=== PATIENT | female | born 1935 | race Caucasian/White ===

== ENCOUNTER 2017-11-04 17:11 | Inpatient (IN) ==
[2017-11-04] MEDS ORDERED: Sodium Chlor 0.9% Inj 500 ML IV.SIG ONE (17:27)
--- NOTE | 2017-11-04 17:33 | ED ---
HPI General Chief complaint: Nausea/Vomiting/Diarrhea Stated complaint: N/V/D x 1 wk/ No urine since 10pm/no appetite Time Seen by Provider: 11/04/17 17:27 Source: patient Mode of arrival: ambulatory Limitations: no limitations History of Present Illness HPI Narrative: 82-year-old female patient presents to the ER today because she has had 1 week history of nausea, vomiting, diarrhea, and left lower quadrant abdominal pain which she currently measures at a 5 out of 10. She has not had any fevers, but states that she has had decreasing urination over last few days , has not been eating anything for several days, tries to drink fluids, and had talked to urgent care facility and they were told to come to the ER for further evaluation. She denies any fevers, black stools, or other symptoms. She denies bad food exposure, does not know any sick contacts. Related Data Home Medications Medication Instructions Recorded Confirmed amlodipine 5 mg PO DAILY 11/04/17 11/04/17 anagrelide 0.5 mg PO Q12H 11/04/17 11/04/17 cholecalciferol (vitamin D3) 2,000 unit PO DAILY 11/04/17 11/04/17 [Vitamin D3] levothyroxine 50 mcg PO DAILY 11/04/17 11/04/17 losartan 100 mg PO DAILY 11/04/17 11/04/17 metoprolol tartrate 50 mg PO BID 11/04/17 11/04/17 omeprazole 20 mg PO DAILY 11/04/17 11/04/17 pravastatin 40 mg PO DAILY 11/04/17 11/04/17 sodium bicarbonate 650 mg PO DAILY 11/04/17 11/04/17 Allergies Allergy/AdvReac Type Severity Reaction Status Date / Time No Known Allergies Allergy Unknown NONE Uncoded 11/04/17 17:13 Review of Systems Except as stated in HPI: all other systems reviewed are negative [facility] Social History Social History Substance History: No History of Abuse Second Hand Smoke Exposure: No Smoking Status: Never smoker How Often Do You Have a Drink Containing Alcohol: Never Recent Travel in [facility] within the Last 8 Weeks: No Recent Out of Country Travel within the Last 8 Weeks: No Immunization History Tetanus Immunization: Unsure Hx Influenza Vaccine This Season: Yes Exam Narrative Exam Narrative: GENERAL: Well-developed elderly female patient currently and mild distress. Awake and oriented 3. SKIN: Focused skin assessment warm/dry. HEAD: Atraumatic. Normocephalic. EYES: Pupils equal and round. No scleral icterus. No injection or drainage. ENT: No nasal bleeding or discharge. Mucous membranes pink and moist. NECK: Trachea midline. No JVD. CARDIOVASCULAR: Regular rate and rhythm. No murmur appreciated. RESPIRATORY: No accessory muscle use. Clear to auscultation. Breath sounds equal bilaterally. GASTROINTESTINAL: Abdomen soft, mild left lower quadrant tenderness without guarding or rebound, nondistended. Hepatic and splenic margins not palpable. MUSCULOSKELETAL: No obvious deformities. No clubbing. No cyanosis. No edema. NEUROLOGICAL: Awake and alert. No obvious cranial nerve deficits. Motor grossly within normal limits. Normal speech. PSYCHIATRIC: Appropriate mood and affect; insight and judgment normal. Course Hospital Course: Lab work shows mild hyponatremia, her creatinine has increased from 1.5-5 today chest from 4 days ago, and BUN is increased as well, there is concern of dehydration here. IV fluids were given in the ER. At this point, my plan would be to admit the patient for further treatment. Case was discussed with Dr. Norris Mar for admission. Initial Documented Vital Signs Temperature 97.7 F 11/04/17 17:13 Pulse Rate 77 11/04/17 17:13 Respiratory Rate 16 11/04/17 17:13 Blood Pressure 154/70 H 11/04/17 17:13 Pulse Oximetry 97 11/04/17 17:13 Last Documented Vital Signs Temperature 97.7 F 11/04/17 17:13 Pulse Rate 77 11/04/17 17:13 Respiratory Rate 16 11/04/17 17:13 Blood Pressure 154/70 H 11/04/17 17:13 Pulse Oximetry 97 11/04/17 17:13 Medical Decision Making Differential Diagnosis Differential Diagnosis: Gastroenteritis versus diverticulitis versus colitis versus acute intra-abdominal processes versus dehydration versus electrolyte abnormalities Lab Data Result diagrams: 11/04/17 17:39 11/04/17 17:39 Lab Results 11/04/17 11/04/17 Range/Units 17:39 17:39 CBC w Diff Slide review pending WBC 11.6 H (4.0-11.0) th/mm3 RBC 3.01 L (4.00-5.30) mil/mm3 Hgb 9.6 L (11.6-15.3) gm/dL Hct 26.9 L (35.0-46.0) % MCV 89.4 (80.0-100.0) fL MCH 32.0 (27.0-34.0) pg MCHC 35.8 (32.0-36.0) % RDW 17.9 H (11.6-17.2) % Plt Count 334 (150-450) th/mm3 MPV 9.1 (7.0-11.0) fL Neut % (Auto) 72.1 H (16.0-70.0) % Lymph % (Auto) 14.2 (9.0-44.0) % Mcleod % (Auto) 11.1 H (0.0-8.0) % Eos % (Auto) 0.9 (0.0-4.0) % Baso % (Auto) 1.7 (0.0-2.0) % Neut # (Auto) 8.3 H (1.8-7.7) th/mm3 Lymph # (Auto) 1.7 (1.0-4.8) th/mm3 Mcleod # (Auto) 1.3 H (0.0-0.9) th/mm3 Eos # (Auto) 0.1 (0.0-0.4) th/mm3 Baso # (Auto) 0.2 (0.0-0.2) th/mm3 WBC Differential . Diff Scan Auto diff confirmed Differential Comment . Platelet Estimate Normal (Normal) Platelet Morphology Normal (Normal) Ovalocytes 1+ H (None) Hematology Comments Sodium 130 L (136-145) meq/L Potassium 3.3 L (3.5-5.1) meq/L Chloride 101 (98-107) meq/L Carbon Dioxide 18.0 L (21.0-32.0) meq/L Anion Gap 11 (5-15) meq/L BUN 43 H (7-18) mg/dL Creatinine 5.10 H (0.50-1.00) mg/dL Estimated GFR 8 L (>89) mL/min Random Glucose 99 (74-106) mg/dL Calcium 8.5 (8.5-10.1) mg/dL Total Bilirubin 0.4 (0.2-1.0) mg/dL AST 23 (15-37) U/L ALT 17 (10-53) U/L Alkaline Phosphatase 106 (45-117) U/L Total Protein 7.4 (6.4-8.2) g/dL Albumin 3.7 (3.4-5.0) g/dL Lipase 117 (73-393) U/L Discharge Plan Discharge Disposition Patient Disposition: 30 Still Patient Discharge Condition Condition: Stable Discharge Details Anticipated Discharge Date: 11/04/17 Diagnosis: Dehydration, TRINITY (acute kidney injury), Acute hyponatremia Physicians Team ED Provider: Mark Hopkins Primary Care Provider: Laurie Treviño Rxs /Orders / Referrals /Forms Prescriptions: No Action anagrelide 0.5 mg Capsule 0.5 mg PO Q12H RF: 0 pravastatin 40 mg Tablet 40 mg PO DAILY RF: 0 amlodipine 5 mg Tablet 5 mg PO DAILY RF: 0 sodium bicarbonate 650 mg Tablet 650 mg PO DAILY RF: 0 levothyroxine 50 mcg Tablet 50 mcg PO DAILY RF: 0 metoprolol tartrate 50 mg Tablet 50 mg PO BID RF: 0 omeprazole 20 mg Capsule,Delayed Release(Dr/Ec) 20 mg PO DAILY RF: 0 losartan 100 mg Tablet 100 mg PO DAILY RF: 0 cholecalciferol (vitamin D3) [Vitamin D3] 2,000 unit Capsule 2,000 unit PO DAILY RF: 0 Status ED Status: With Doctor
[2017-11-04 17:53] LABS: Chloride 101 meq/L (98-107); Potassium 3.3 meq/L (3.5-5.1); Sodium 130 meq/L (136-145)
[2017-11-04 17:56] LABS: Calcium 8.5 mg/dL (8.5-10.1)
[2017-11-04 17:57] LABS: Albumin 3.7 g/dL (3.4-5.0); Anion Gap 11 meq/L (5-15); Blood Urea Nitrogen 43 mg/dL (7-18); Glucose,Random 99 mg/dL (74-106); Lipase 117 U/L (73-393)
[2017-11-04 18:00] LABS: Alanine Aminotransferase 17 U/L (10-53); Aspartate Aminotransferase 23 U/L (15-37); Glomerular Filtration Rate 8 mL/min (>89)
[2017-11-04 18:01] LABS: Total Protein 7.4 g/dL (6.4-8.2)
[2017-11-04 18:03] LABS: Alkaline Phosphatase 106 U/L (45-117)
[2017-11-04 18:13] LABS: Baso # (Auto) 0.2 th/mm3 (0.0-0.2); Baso % (Auto) 1.7 % (0.0-2.0); Eos # (Auto) 0.1 th/mm3 (0.0-0.4); Eos % (Auto) 0.9 % (0.0-4.0); Hematocrit 26.9 % (35.0-46.0); Hemoglobin 9.6 gm/dL (11.6-15.3); Lymph # (Auto) 1.7 th/mm3 (1.0-4.8); Lymph % (Auto) 14.2 % (9.0-44.0); Mean Corpuscular HGB Conc 35.8 % (32.0-36.0); Mean Corpuscular Volume 89.4 fL (80.0-100.0); Mean Platelet Volume 9.1 fL (7.0-11.0); Mono # (Auto) 1.3 th/mm3 (0.0-0.9); Mono % (Auto) 11.1 % (0.0-8.0); Neut # (Auto) 8.3 th/mm3 (1.8-7.7); Neut % (Auto) 72.1 % (16.0-70.0); Red Blood Count 3.01 mil/mm3 (4.00-5.30); Red Cell Distribution Width 17.9 % (11.6-17.2); White Blood Count 11.6 th/mm3 (4.0-11.0)
[2017-11-04 18:16] LABS: Platelet Count 334 th/mm3 (150-450)
[2017-11-04 18:32] LABS: Ovalocytes 1+; Platelet Estimate Normal (Normal); Platelet Morphology Normal (Normal)
[2017-11-04] MEDS ORDERED: AGRYLIN PO SCH (21:30)
[2017-11-04] MEDS: Sod Chloride 0.9% Inj 1,000 ML IV.CONT SCH (22:16)
[2017-11-04] MEDS: Metoprolol Tartrate 50 MG Tablet PO SCH (22:16)
--- NOTE | 2017-11-04 22:24 | P.HP ---
History of Present Illness Service: medicine Primary Care Physician: Laurie Treviño MD History of Present Illness: Patient presented to the ER after 4 day history of diarrhea and no urination for the past 24 hours. She states she has been feeling poorly starting mon when she went to see Dr May for her myelodysplastic syndrome and had her injection of procrit. That evening she felt chills then developed diarrhea for the next 4 days going 6-9 times a day. She kept taking in fluids but was unable to eat much. She also had LLQ pain. She denies blood in her stools. She presented to the ER this evening and was found to have a creatinine of 5. She normally sees Dr De La Cruz for her CKD3. Her last BUn in august was 18 and her creatinine was 1.18. She normally takes sodium bicarbonate and she has been taking all her medications during her illness. She denies use of any new medications.She states she had epsiodes of nausea and vomiting that had subsided by monday. - Diagnosis (1) TRINITY (acute kidney injury) (2) Dehydration (3) Acute hyponatremia Inpatient Certification: I certify that the inpatient services were ordered in accordance with Medicare regulations governing the order. This includes certification that hospital inpatient services are reasonable and necessary and in the case of services not specified as inpatient-only under 42 CFR 419.22(n), that they are appropriately provided as inpatient services in accordance to with the 2-midnight benchmark under 43 CFR 412.3(e) Estimated Total Length of Stay (Days): 2 Plans for Post Hospital Care: Not yet determined Review of Systems All other systems reviewed negative except as stated in [facility] - History History Provided By: Patient - Medical History Medical History: Medical History (Last Reviewed 11/08/17 @ 12:33 by Mayito Glass) CKD (chronic kidney disease) stage 3, GFR 30-59 ml/min Hyperlipidemia Hypertension Hypothyroidism Myelodysplasia (myelodysplastic syndrome) - Surgical History Surgical History: Surgical History (Last Reviewed 11/08/17 @ 12:33 by Mayito Glass) H/O ovarian cystectomy History of appendectomy - Tobacco History Second Hand Smoke Exposure: No Tobacco Use In Past 30 Days: No Smoking Status: Never smoker - Alcohol History How Often Do You Have a Drink Containing Alcohol: Never - Substance Use History Substance History: No History of Abuse - Travel History Recent Travel in the [place] Within the Last 8 Weeks: No Recent Travel Out of the Country Within the Last 8 Weeks: No - Immunization History Tetanus Immunization: Unsure Hx Influenza Vaccine This Season: Yes Medications and Allergies Active Medications: Active Medications Amlodipine Besylate (Norvasc) 5 mg PO DAILY MARIA E Sodium Chloride (Ns Inj) 1,000 mls @ 80 mls/hr IV.CONT .[id number] [facility] Levothyroxine Sodium (Synthroid) 50 mcg PO DAILY@0700 MARIA E Losartan Potassium (Cozaar) 100 mg PO DAILY MARIA E Metoprolol Tartrate (Lopressor) 50 mg PO BID MARIA E Ondansetron HCl (Zofran Inj) 4 mg IV.PUSH Q6H PRN PRN Reason: NAUSEA OR VOMITING Pt Own Agrylin 0.5 (Mg) 0 each PO Q12H MARIA E Pravastatin Sodium (Pravachol) 40 mg PO DAILY MARIA E Sodium Bicarbonate (Sodium Bicarbonate) 650 mg PO DAILY [facility] Sodium Chloride (Ns Flush) 2 ml IV.FLUSH PRN PRN PRN Reason: FLUSH AFTER USING IV ACCESS Vitamin D (Vitamin D3) 2,000 unit PO DAILY [facility] Allergies Allergy/AdvReac Type Severity Reaction Status Date / Time No Known Allergies Allergy Unknown NONE Uncoded 11/04/17 17:13 Home Medications Medication Instructions Recorded Confirmed Type amlodipine 5 mg PO DAILY 11/04/17 11/04/17 History anagrelide 0.5 mg PO Q12H 11/04/17 11/04/17 History cholecalciferol (vitamin D3) 2,000 unit PO DAILY 11/04/17 11/04/17 History [Vitamin D3] levothyroxine 50 mcg PO DAILY 11/04/17 11/04/17 History losartan 100 mg PO DAILY 11/04/17 11/04/17 History metoprolol tartrate 50 mg PO BID 11/04/17 11/04/17 History omeprazole 20 mg PO DAILY 11/04/17 11/04/17 History pravastatin 40 mg PO DAILY 11/04/17 11/04/17 History sodium bicarbonate 650 mg PO DAILY 11/04/17 11/04/17 History Exam Vital signs: Vital Signs 11/04/17 17:13 11/04/17 19:23 11/04/17 19:29 Temperature 97.7 F Pulse Rate 77 83 76 Respiratory Rate 16 16 18 Blood Pressure 154/70 H 142/61 H 142/67 H Pulse Oximetry 97 96 96 Intake & Output 11/04/17 11/04/17 11/05/17 06:59 18:59 06:59 Intake Total 500 / 500 Balance 500 / 500 Weight 50.3 kg 51.3 kg Intake: IV 500 / 500 NS Inj 500 ML @ Wide Open IV. 500 / 500 SIG BOLUS ONE Rx#:[id number] - Constitutional no acute distress - Routine HEENT Exam Head: Present: normocephalic, atraumatic Eye: Present: EOMI ENT: Present: mucous membranes moist - Routine Neck Exam Present: supple - Routine Respiratory Exam Present: CTA bilaterally - Routine Cardiovascular Exam Present: RRR - Routine Abdominal Exam Present: tenderness Comments: LLQ no rebound or guarding - Routine Skin Exam Present: intact - Routine Neurological Exam Present: alert, oriented X3 Results - Labs CBC & Chem 7: 11/09/17 05:45 11/09/17 05:45 Labs: Laboratory Results - last 24 hr 11/04/17 11/04/17 17:39 17:39 CBC w Diff Slide review pending WBC 11.6 H RBC 3.01 L Hgb 9.6 L Hct 26.9 L MCV 89.4 MCH 32.0 MCHC 35.8 RDW 17.9 H Plt Count 334 MPV 9.1 Neut % (Auto) 72.1 H Lymph % (Auto) 14.2 Cache % (Auto) 11.1 H Eos % (Auto) 0.9 Baso % (Auto) 1.7 Neut # (Auto) 8.3 H Lymph # (Auto) 1.7 [place] # (Auto) 1.3 H Eos # (Auto) 0.1 Baso # (Auto) 0.2 WBC Differential . Diff Scan Auto diff confirmed Differential Comment . Platelet Estimate Normal Platelet Morphology Normal Ovalocytes 1+ H Hematology Comments Sodium 130 L Potassium 3.3 L Chloride 101 Carbon Dioxide 18.0 L Anion Gap 11 BUN 43 H Creatinine 5.10 H Estimated GFR 8 L Random Glucose 99 Calcium 8.5 Total Bilirubin 0.4 AST 23 ALT 17 Alkaline Phosphatase 106 Total Protein 7.4 Albumin 3.7 Lipase 117 Caprini VTE Risk Assessment Caprini VTE Risk Assessment: Moderate/High Risk (score >= 2) Caprini Risk Assessment Model: Point Value = 1 Point Value = 2 Point Value = 3 Point Value = 5 Age 41-60 Minor surgery BMI > 25 kg/m2 Swollen legs Varicose veins or History of unexplained or recurrent spontaneous Oral contraceptives or hormone replacement Sepsis (< 1 month) Serious lung disease, including pneumonia (< 1 month) Abnormal pulmonary function Acute myocardial infarction Congestive heart failure (< 1 month) History of inflammatory bowel disease Medical patient at bed rest Age 61-74 Arthroscopic surgery Major open surgery (> 45 min) Laparoscopic surgery (> 45 min) Malignancy Confined to bed (> 72 hours) Immobilizing plaster cast Central venous access Age >= 75 History of VTE Family history of VTE Factor V Leiden Prothrombin [id number] Lupus anticoagulant Anticardiolipin antibodies Elevated serum homocysteine Heparin-induced thrombocytopenia Other congenital or acquired thrombophilia Stroke (< 1 month) Elective arthroplasty Hip, pelvis, or leg fracture Acute spinal cord injury (< 1 month) Prophylaxis Regimen: Total Risk Factor Score Risk Level Prophylaxis Regimen 0-1 Low Early ambulation 2 Moderate Order ONE of the following: *Sequential Compression Device (SCD) *Heparin 5000 units SQ BID 3-4 Higher Order ONE of the following medications: *Heparin 5000 units SQ TID *Enoxaparin/Lovenox 40 mg SQ daily (WT < 150 kg, CrCl > 30 mL/min) *Enoxaparin/Lovenox 30 mg SQ daily (WT < 150 kg, CrCl > 10-29 mL/min) *Enoxaparin/Lovenox 30 mg SQ BID (WT < 150 kg, CrCl > 30 mL/min) AND/OR *Sequential Compression Device (SCD) 5 or more Highest Order ONE of the following medications: *Heparin 5000 units SQ TID (Preferred with Epidurals) *Enoxaparin/Lovenox 40 mg SQ daily (WT < 150 kg, CrCl > 30 mL/min) *Enoxaparin/Lovenox 30 mg SQ daily (WT < 150 kg, CrCl > 10-29 mL/min) *Enoxaparin/Lovenox 30 mg SQ BID (WT < 150 kg, CrCl > 30 mL/min) AND *Sequential Compression Device (SCD) Assessment and Plan - Assessment (1) TRINITY (acute kidney injury) Code(s): N17.9 - Acute kidney failure, unspecified Status: Acute Plan: Will hydrate gently as this is likely due to some dehydration from her diarrhea , will also order ct scan to evaluate for obstruction and due to llq pain. Nephrology consulted (2) Dehydration Code(s): E86.0 - Dehydration Status: Acute Plan: gently hydrate (3) Acute hyponatremia Code(s): E87.1 - Hypo-osmolality and hyponatremia Status: Acute Plan: likely in part due to her dehydration, gently hydrate, cont sodium bicarbonate
[2017-11-04] MEDS ORDERED: Diatrizoate Meglum/Diatrizoate Sod Liq 9 ML UDC PO SCH (22:30)
[2017-11-04 23:31] LABS: Bilirubin,Urine Negative (Negative); Clarity,Urine Clear (Clear); Color,Urine Yellow (Yellw/Straw); Glucose,Urine (UA) Negative (Negative); Leukocyte Esterase,Urine Moderate (Negative); Nitrite,Urine Negative (Negative); Specific Gravity,Urine Less/Equal 1.005 (1.002-1.035); Urobilinogen,Urine 0.2 mg/dL (Less than 2)
[2017-11-04 23:35] LABS: Bacteria,Urine Few /hpf; RBC,Urine 0-3 /hpf (0-3); WBC,Urine 21-50 /hpf (0-5)
--- NOTE | 2017-11-05 02:54 | CT ---
EXAM DATE: 11/05/2017 2:30 AM EDT AGE/SEX: 82 years / Female INDICATIONS: Left lower quadrant pain. CLINICAL DATA: This is the patient's initial encounter. Patient reports that signs and symptoms have been present for 1 day and indicates a pain score of 4/10. MEDICAL/SURGICAL HISTORY: Hypertension. Stage 3 renal disease. None. RADIATION DOSE: 6.29 CTDI (mGy) COMPARISON: No prior exams available for comparison. TECHNIQUE: Multiple contiguous axial images were obtained through the abdomen. Images were obtained using multiple row detector helical technique. Using automated exposure control and adjustment of the mA and/or kV according to patient size, radiation dose was kept as low as reasonably achievable to o btain optimal diagnostic quality images. DICOM format image data is available electronically for rev iew and comparison. FINDINGS: Lower Lungs: Atelectasis/scarring at the lung bases. Liver: The liver has a homogeneous density without space-occupying lesion. There is no dilation of th e biliary tree. Spleen: Homogeneous density without enlargement. Pancreas: Unremarkable without mass or calcification. Kidneys: 1.4 cm rounded hypodensity in the posterior midpole the left kidney, nonspecific on noncont rast study but likely representing a cyst. No renal calculi or hydronephrosis identified. Adrenal Glands: Unremarkable. Aorta: The aorta and proximal iliac vessels are grossly unremarkable without aneurysmal dilation. Bowel/Mesentery: Mild diffuse wall thickening of the ascending colon and transverse colon. Mild wall thickening of the distal ileum. Appendix not identified. No free air or free fluid. Scattered coloni c diverticula but no evidence of acute diverticulitis. Abdominal Wall: Intact. Retroperitoneum: No evidence of adenopathy in the retrocrural, para-aortic, or deep pelvic regions. Bladder: Contours are smooth. Reproductive Organs: No abnormal masses or calcifications seen. Inguinal: The inguinal region is unremarkable without evidence of adenopathy. Bony Structures: Degenerative findings of the lumbar spine.. CONCLUSION: 1. Nonspecific ascending and transverse colon wall thickening suggesting colitis. 2. 1.4 cm rounded hypodensity in the left kidney likely representing a cyst. Electronically signed by: Tito Tucker MD 11/05/2017 2:53 AM EDT
[2017-11-05] MEDS: Levothyroxine 50 MCG Tablet PO SCH (06:18)
[2017-11-05 06:35] LABS: Chloride 104 meq/L (98-107); Potassium 3.6 meq/L (3.5-5.1); Sodium 134 meq/L (136-145)
[2017-11-05 06:40] LABS: Albumin 3.2 g/dL (3.4-5.0); Anion Gap 11 meq/L (5-15); Calcium 8.1 mg/dL (8.5-10.1); Carbon Dioxide 19.1 meq/L (21.0-32.0); Glucose,Random 89 mg/dL (74-106)
[2017-11-05 06:41] LABS: Blood Urea Nitrogen 43 mg/dL (7-18)
[2017-11-05 06:43] LABS: Alanine Aminotransferase 15 U/L (10-53); Aspartate Aminotransferase 19 U/L (15-37); Glomerular Filtration Rate 8 mL/min (>89)
[2017-11-05 06:45] LABS: Total Protein 6.3 g/dL (6.4-8.2)
[2017-11-05 06:46] LABS: Alkaline Phosphatase 97 U/L (45-117)
[2017-11-05 07:35] LABS: Baso # (Auto) 0.2 th/mm3 (0.0-0.2); Baso % (Auto) 2.2 % (0.0-2.0); Eos # (Auto) 0.1 th/mm3 (0.0-0.4); Eos % (Auto) 0.8 % (0.0-4.0); Hematocrit 23.1 % (35.0-46.0); Hemoglobin 8.4 gm/dL (11.6-15.3); Lymph # (Auto) 1.1 th/mm3 (1.0-4.8); Lymph % (Auto) 10.6 % (9.0-44.0); Mean Corpuscular HGB Conc 36.4 % (32.0-36.0); Mean Corpuscular Hemoglobin 31.9 pg (27.0-34.0); Mean Corpuscular Volume 87.8 fL (80.0-100.0); Mean Platelet Volume 8.4 fL (7.0-11.0); Mono # (Auto) 0.7 th/mm3 (0.0-0.9); Mono % (Auto) 7.3 % (0.0-8.0); Neut # (Auto) 7.8 th/mm3 (1.8-7.7); Neut % (Auto) 79.1 % (16.0-70.0); Platelet Count 306 th/mm3 (150-450); Red Blood Count 2.63 mil/mm3 (4.00-5.30); Red Cell Distribution Width 17.7 % (11.6-17.2); White Blood Count 9.9 th/mm3 (4.0-11.0)
[2017-11-05] MEDS ORDERED: Sodium Bicarbonate 650 MG Tablet PO SCH (09:00)
[2017-11-05] MEDS: Metoprolol Tartrate 50 MG Tablet PO SCH ×2 (09:11→20:00)
[2017-11-05] MEDS: amLODIPine 5 MG Tablet PO SCH (09:11)
[2017-11-05] MEDS: Sod Chloride 0.9% Inj 1,000 ML IV.CONT SCH ×2 (10:40→20:00)
--- NOTE | 2017-11-05 13:25 | P.PN ---
Subjective Interval history: states she has been voiding since last night. she has had recurrence of her diarrhea and they have been using a hat to get stool specimen so staff has not been tracking her voids. She had chicken noodle soup and some diarrhea after. She says her abdominal pain is better however. Ambulating in room. Recalls epsiode of vertigo a couple fo days prior to this starting but nothing new. Was in [place] with family and later spending time with her brother here. No one else is sick. Aside from feeling week she denies much discomfort. Physical Exam Vital signs: Vital Signs 11/04/17 17:13 11/04/17 19:23 11/04/17 19:29 Temperature 97.7 F Pulse Rate 77 83 76 Respiratory Rate 16 16 18 Blood Pressure 154/70 H 142/61 H 142/67 H Pulse Oximetry 97 96 96 11/04/17 21:00 11/04/17 22:05 11/05/17 00:26 Temperature 97.9 F 97.9 F Pulse Rate 120 H 115 H 104 H Respiratory Rate 20 20 Blood Pressure 145/81 H 101/60 Pulse Oximetry 97 97 11/05/17 01:25 11/05/17 04:00 11/05/17 07:36 Temperature 97.4 F L Pulse Rate 84 Respiratory Rate 20 Blood Pressure 106/63 Pulse Oximetry 97 98 97 11/05/17 08:00 11/05/17 12:00 Temperature 97.6 F 97.8 F Pulse Rate 87 72 Respiratory Rate 18 18 Blood Pressure 150/70 H 102/53 L Pulse Oximetry 96 96 Intake & Output 11/04/17 11/05/17 11/05/17 18:59 06:59 18:59 Intake Total 560 / 560 1000 / 1000 Output Total 650 / 650 500 / 500 Balance -90 / -90 500 / 500 Weight 50.3 kg 50.9 kg Intake: IV 500 / 500 1000 / 1000 NS Inj 1,000 ML @ 80 mls/hr IV. 1000 / 1000 CONT .[id number] MARIA E Rx#: [id number] NS Inj 500 ML @ Wide Open IV. 500 / 500 SIG BOLUS ONE Rx#:[id number] Oral 60 / 60 Output: Urine 650 / 650 500 / 500 Other: # Voids 1 # Bowel Movements 1 Weight On Admission 51.6 kg - Constitutional no acute distress - Routine HEENT Exam Head: Present: normocephalic Eye: Present: EOMI ENT: Present: mucous membranes moist - Routine Neck Exam Present: supple - Routine Respiratory Exam Present: CTA bilaterally - Routine Cardiovascular Exam Present: RRR - Routine Abdominal Exam Present: soft, normoactive bowel sounds Comments: minimla tenderness to palpation LLQ - Routine Extremities Exam Present: full ROM - Routine Skin Exam Present: intact - Routine Neurological Exam Present: alert, oriented X3 Results - Labs CBC & Chem 7: 11/05/17 05:47 11/05/17 05:47 Laboratory Results - last 24 hr 11/04/17 11/04/17 11/04/17 17:39 17:39 23:15 CBC w Diff Slide review pending WBC 11.6 H RBC 3.01 L Hgb 9.6 L Hct 26.9 L MCV 89.4 MCH 32.0 MCHC 35.8 RDW 17.9 H Plt Count 334 MPV 9.1 Neut % (Auto) 72.1 H Lymph % (Auto) 14.2 Clark % (Auto) 11.1 H Eos % (Auto) 0.9 Baso % (Auto) 1.7 Neut # (Auto) 8.3 H Lymph # (Auto) 1.7 Clark # (Auto) 1.3 H Eos # (Auto) 0.1 Baso # (Auto) 0.2 WBC Differential . Diff Scan Auto diff confirmed Differential Comment . Platelet Estimate Normal Platelet Morphology Normal Ovalocytes 1+ H Hematology Comments Sodium 130 L Potassium 3.3 L Chloride 101 Carbon Dioxide 18.0 L Anion Gap 11 BUN 43 H Creatinine 5.10 H Estimated GFR 8 L Random Glucose 99 Calcium 8.5 Total Bilirubin 0.4 AST 23 ALT 17 Alkaline Phosphatase 106 Total Protein 7.4 Albumin 3.7 Lipase 117 Urine Color Yellow Urine Clarity Clear Urine pH 6.0 Ur Specific [place] Less/equal 1.005 Urine Protein 30 H Urine Glucose (UA) Negative Urine Ketones Negative Urine Occult Blood Trace Urine Nitrate Negative Urine Bilirubin Negative Urine Urobilinogen 0.2 Ur Leukocyte Esterase Moderate H Urine RBC 0-3 Urine WBC 21-50 H Urine WBC Clumps Few H Urine Bacteria Few H Micro UA Comment Culture indicated Urine Culture Comments Culture indicated 11/05/17 11/05/17 05:47 05:47 CBC w Diff Slide review pending WBC 9.9 RBC 2.63 L Hgb 8.4 L Hct 23.1 L MCV 87.8 MCH 31.9 MCHC 36.4 H RDW 17.7 H Plt Count 306 MPV 8.4 Neut % (Auto) 79.1 H Lymph % (Auto) 10.6 Clark % (Auto) 7.3 Eos % (Auto) 0.8 Baso % (Auto) 2.2 H Neut # (Auto) 7.8 H Lymph # (Auto) 1.1 Clark # (Auto) 0.7 Eos # (Auto) 0.1 Baso # (Auto) 0.2 WBC Differential . Diff Scan Auto diff confirmed Differential Comment . Platelet Estimate Platelet Morphology Ovalocytes Hematology Comments Sodium 134 L Potassium 3.6 Chloride 104 Carbon Dioxide 19.1 L Anion Gap 11 BUN 43 H Creatinine 5.30 H Estimated GFR 8 L Random Glucose 89 Calcium 8.1 L Total Bilirubin 0.6 AST 19 ALT 15 Alkaline Phosphatase 97 Total Protein 6.3 L D Albumin 3.2 L Lipase Urine Color Urine Clarity Urine pH Ur Specific [place] Urine Protein Urine Glucose (UA) Urine Ketones Urine Occult Blood Urine Nitrate Urine Bilirubin Urine Urobilinogen Ur Leukocyte Esterase Urine RBC Urine WBC Urine WBC Clumps Urine Bacteria Micro UA Comment Urine Culture Comments - Imaging Impressions Abdomen/Pelvis CT 11/05/17 00:00 CONCLUSION: 1. Nonspecific ascending and transverse colon wall thickening suggesting colitis. 2. 1.4 cm rounded hypodensity in the left kidney likely representing a cyst. Assessment and Plan - Assessment (1) TRINITY (acute kidney injury) Code(s): N17.9 - Acute kidney failure, unspecified Status: Acute Plan: Will hydrate gently as this is likely due to some dehydration from her diarrhea , she states she is voiding but I/Os are not accurate. Ct scan showed colitis and density felt to be a cyst, no obvious obstruction. Her renal function has not improved much. She has ckd3 with baseline creatinines usually running between 1.3-1.4 per review of her chart. Last creatinine was 1.18 in august. She normally has a potassium in the high normal range. Dr De La Cruz also has her on sodium bicarbonate. Between the Vomiting and Diarrhea and her baseline electrolyte status she seems to be balancing her electrolytes, Her creatinine does not seem to be improving however she states she is making urine. diarrhea started again last night. Will recheck electrolytes and perhaps increase fluids. Awaiting formal nephrology consult. I did speak to Dr Hastings about her last night and he was in agreement regarding the fluids and ct scan. (2) Dehydration Code(s): E86.0 - Dehydration Status: Acute Plan: gently hydrate, diarrhea has resumed, will increase iv fluids (3) Acute hyponatremia Code(s): E87.1 - Hypo-osmolality and hyponatremia Status: Acute Plan: improved, likely in part due to her dehydration, gently hydrate, cont sodium bicarbonate (4) Diarrhea Code(s): R19.7 - Diarrhea, unspecified Status: Acute Plan: Diarrhea had apparently improved after kaopectate and antidiarrheal agent, restarted again, will check stool studies. ct scan showed nonspecific colitis, aside from diarrhea she actually feels better GI darden with less abdominal discomfort (4) Diarrhea Qualifiers: Diarrhea type: unspecified type Qualified Code(s): R19.7 - Diarrhea, unspecified
[2017-11-05 14:12] LABS: Potassium 3.1 meq/L (3.5-5.1)
[2017-11-05 14:15] LABS: Calcium 7.9 mg/dL (8.5-10.1); Carbon Dioxide 19.1 meq/L (21.0-32.0)
[2017-11-05] MEDS ORDERED: Potassium Chloride 25 MEQ Effervescent Tablet PO ONE (17:11)
--- NOTE | 2017-11-05 17:13 | P.CONNP ---
History of Present Illness Service: Nephrology Consult date: 11/05/17 Requesting Physician: Laurie Treviño Reason for Consult: Acute renal failure chronic kidney disease Primary Care Provider: Laurie Treviño MD Family Provider: Laurie Treviño MD Chief Complaint: Diarrhea History of Present Illness: Patient is a 82-year-old white female with history of myelodysplastic syndrome, chronic kidney disease follows with Dr. De La Cruz baseline creatinine around 1.18 came in with a creatinine of around 5.1, patient has been having diarrhea she was visiting [place] 2 months ago but current sickness started recently and got diarrhea, patient has recurrence of diarrhea today and had several bowel movements, CT scan showed some thickening of bowels, there is no hydronephrosis her creatinine is 5.3 repeat 4.9, patient was started on IV hydration and is passing urine. Review of Systems Constitutional: Reports lack of energy Eyes: Denies blind spots, Denies blurry vision, Denies bulging eyes, Denies change in vision, Denies double vision, Denies discharge, Denies dry eyes, Denies floaters, Denies irritation, Denies itchy eyes, Denies loss of vision, Denies pain, Denies requires corrective lenses, Denies sensitivity to light, Denies other Ears, Nose, Mouth, and Throat: Denies abnormal hearing, Denies bleeding gums, Denies bad breath, Denies change in voice, Denies dental pain, Denies difficulty swallowing, Denies dizziness, Denies dry mouth, Denies ear discharge , Denies ear pain, Denies facial pain, Denies headache(s), Denies hearing loss, Denies hoarseness, Denies lip swelling, Denies nosebleed, Denies mouth lesions, Denies mouth pain, Denies nasal congestion, Denies nasal discharge, Denies nasal obstruction, Denies nasal trauma, Denies neck lump, Denies neck pain, Denies nose pain, Denies pain with swallowing, Denies poor balance, Denies post nasal drip, Denies ringing in the ears, Denies sinus pain, Denies sinus pressure , Denies sore throat, Denies throat swelling, Denies tongue swelling, Denies other Cardiovascular: Denies chest pain, Denies chest pain at rest, Denies chest pain with activity, Denies excessive sweating, Denies fainting, Denies fast heart rate, Denies foot swelling, Denies generalized swelling, Denies irregular heart rhythm, Denies leg pain with activity, Denies leg sores, Denies leg swelling, Denies lightheadedness, Denies radiating jaw, neck or arm pain, Denies rapid, pounding, or irregular heartbeat, Denies shortness of breath, Denies shortness of breath with activity, Denies shortness of breath when lying down, Denies shortness of breath causing sudden awakening, Denies slow heart rate, Denies other Respiratory: Denies change in phlegm color, Denies chest congestion, Denies cough, Denies coughing up blood, Denies excessive phlegm production, Denies pain on inspiration, Denies pain with cough, Denies shortness of breath, Denies shortness of breath with activity, Denies snoring, Denies stridor, Denies wheezing, Denies other Gastrointestinal: Reports cramping, Reports loose stools Genitourinary: Reports urinary urgency (Slow) Musculoskeletal: Reports body aches PMFSH - History History Provided By: Patient - Medical History Medical History: Medical History (Last Updated 11/04/17 @ 22:01 by Laurie Treviño MD) CKD (chronic kidney disease) stage 3, GFR 30-59 ml/min Hyperlipidemia Hypertension Hypothyroidism Myelodysplasia (myelodysplastic syndrome) - Surgical History Surgical History: Surgical History (Last Updated 11/05/17 @ 13:03 by Laurie Treviño MD) H/O ovarian cystectomy History of appendectomy - Tobacco History Second Hand Smoke Exposure: No Tobacco Use In Past 30 Days: No Smoking Status: Never smoker - Alcohol History How Often Do You Have a Drink Containing Alcohol: Never - Substance Use History Substance History: No History of Abuse - Travel History Recent Travel in the [place] Within the Last 8 Weeks: No Recent Travel Out of the Country Within the Last 8 Weeks: No - Immunization History Tetanus Immunization: Unsure Hx Influenza Vaccine This Season: Yes Medications and Allergies Active Medications: Active Medications Amlodipine Besylate (Norvasc) 5 mg PO DAILY [facility] Last Admin: 11/05/17 09:11 Dose: 5 mg Sodium Chloride (Ns Inj) 1,000 mls @ 80 mls/hr IV.CONT .[id number] [facility] Last Admin: 11/05/17 10:40 Dose: 80 mls/hr Levothyroxine Sodium (Synthroid) 50 mcg PO DAILY@0700 [facility] Last Admin: 11/05/17 06:18 Dose: 50 mcg Losartan Potassium (Cozaar) 100 mg PO DAILY [facility] Last Admin: 11/05/17 09:11 Dose: 100 mg Metoprolol Tartrate (Lopressor) 50 mg PO BID [facility] Last Admin: 11/05/17 09:11 Dose: 50 mg Ondansetron HCl (Zofran Inj) 4 mg IV.PUSH Q6H PRN PRN Reason: NAUSEA OR VOMITING Pt Own: Agrylin 0. (5mg) 0 each PO BID [facility] Pravastatin Sodium (Pravachol) 40 mg PO DAILY [facility] Last Admin: 11/05/17 09:11 Dose: 40 mg Sodium Bicarbonate (Sodium Bicarbonate) 650 mg PO DAILY [facility] Last Admin: 11/05/17 09:11 Dose: 650 mg Sodium Chloride (Ns Flush) 2 ml IV.FLUSH PRN PRN PRN Reason: FLUSH AFTER USING IV ACCESS Vitamin D (Vitamin D3) 2,000 unit PO DAILY [facility] Last Admin: 11/05/17 09:10 Dose: 2,000 unit Allergies Allergy/AdvReac Type Severity Reaction Status Date / Time No Known Allergies Allergy Unknown NONE Uncoded 11/04/17 17:13 Home Medications Medication Instructions Recorded Confirmed Type amlodipine 5 mg PO DAILY 11/04/17 11/04/17 History anagrelide 0.5 mg PO Q12H 11/04/17 11/04/17 History cholecalciferol (vitamin D3) 2,000 unit PO DAILY 11/04/17 11/04/17 History [Vitamin D3] levothyroxine 50 mcg PO DAILY 11/04/17 11/04/17 History losartan 100 mg PO DAILY 11/04/17 11/04/17 History metoprolol tartrate 50 mg PO BID 11/04/17 11/04/17 History omeprazole 20 mg PO DAILY 11/04/17 11/04/17 History pravastatin 40 mg PO DAILY 11/04/17 11/04/17 History sodium bicarbonate 650 mg PO DAILY 11/04/17 11/04/17 History Exam Vital signs: Vital Signs 11/04/17 17:13 11/04/17 19:23 11/04/17 19:29 Temperature 97.7 F Pulse Rate 77 83 76 Respiratory Rate 16 16 18 Blood Pressure 154/70 H 142/61 H 142/67 H Pulse Oximetry 97 96 96 11/04/17 21:00 11/04/17 22:05 11/05/17 00:26 Temperature 97.9 F 97.9 F Pulse Rate 120 H 115 H 104 H Respiratory Rate 20 20 Blood Pressure 145/81 H 101/60 Pulse Oximetry 97 97 11/05/17 01:25 11/05/17 04:00 11/05/17 07:36 Temperature 97.4 F L Pulse Rate 84 Respiratory Rate 20 Blood Pressure 106/63 Pulse Oximetry 97 98 97 11/05/17 08:00 11/05/17 12:00 Temperature 97.6 F 97.8 F Pulse Rate 91 H 72 Respiratory Rate 18 18 Blood Pressure 150/70 H 102/53 L Pulse Oximetry 96 96 Intake & Output 11/04/17 11/05/17 11/05/17 18:59 06:59 18:59 Intake Total 560 / 560 1000 / 1000 Output Total 650 / 650 500 / 500 Balance -90 / -90 500 / 500 Weight 50.3 kg 50.9 kg Intake: IV 500 / 500 1000 / 1000 NS Inj 1,000 ML @ 80 mls/hr IV. 1000 / 1000 CONT .[id number] [facility] Rx#: [id number] NS Inj 500 ML @ Wide Open IV. 500 / 500 SIG BOLUS ONE Rx#:[id number] Oral 60 / 60 Output: Urine 650 / 650 500 / 500 Other: # Voids 1 Date of Last Bowel Movement 11/05/17 # Bowel Movements 1 Weight On Admission 51.6 kg - Constitutional no acute distress - Routine HEENT Exam Head: Present: normocephalic Eye: Present: EOMI, PERRL - Routine Neck Exam Present: supple - Routine Respiratory Exam Present: CTA bilaterally - Routine Cardiovascular Exam Present: RRR - Routine Abdominal Exam Present: soft, normoactive bowel sounds - Routine Extremities Exam Present: full ROM - Routine Skin Exam Present: intact - Routine Neurological Exam Present: alert, oriented X3 Results - Lab Results 11/05/17 05:47 11/05/17 13:59 Most recent lab results Calcium 7.9 mg/dL (8.5-10.1) L 11/05/17 13:59 - Image Kidney/bladder ultrasound: image reviewed Assessment and Plan - Assessment (1) TRINITY (acute kidney injury) Code(s): N17.9 - Acute kidney failure, unspecified Status: Acute Onset Date : ~11/04/17 (2) Dehydration Code(s): E86.0 - Dehydration Status: Acute Onset Date: ~11/04/17 (3) Acute hyponatremia Code(s): E87.1 - Hypo-osmolality and hyponatremia Status: Acute Onset Date: ~11/04/17 (4) Diarrhea Code(s): R19.7 - Diarrhea, unspecified Status: Acute Onset Date: ~11/01/17 - Plan Patient has acute renal failure due to GI induced volume loss, she has diarrhea and acute renal failure appears to be responding to IV fluids creatinine declined to 4.9 Potassium is low replace this Continue to hydrate her Avoid nephrotoxins C. difficile is negative Etiology of diarrhea is unclear Continue to monitor BMP Follow culture results of stool and urine I will inform Dr. De La Cruz to follow in the a.m. Diagnostic Tests Laboratory: Laboratory Results - last 72 hr 11/04/17 11/04/17 11/04/17 17:39 17:39 23:15 CBC w Diff Slide review pending WBC 11.6 H RBC 3.01 L Hgb 9.6 L Hct 26.9 L MCV 89.4 MCH 32.0 MCHC 35.8 RDW 17.9 H Plt Count 334 MPV 9.1 Neut % (Auto) 72.1 H Lymph % (Auto) 14.2 [place] % (Auto) 11.1 H Eos % (Auto) 0.9 Baso % (Auto) 1.7 Neut # (Auto) 8.3 H Lymph # (Auto) 1.7 [place] # (Auto) 1.3 H Eos # (Auto) 0.1 Baso # (Auto) 0.2 WBC Differential . Diff Scan Auto diff confirmed Differential Comment . Platelet Estimate Normal Platelet Morphology Normal Ovalocytes 1+ H Hematology Comments Sodium 130 L Potassium 3.3 L Chloride 101 Carbon Dioxide 18.0 L Anion Gap 11 BUN 43 H Creatinine 5.10 H Estimated GFR 8 L Random Glucose 99 Calcium 8.5 Total Bilirubin 0.4 AST 23 ALT 17 Alkaline Phosphatase 106 Total Protein 7.4 Albumin 3.7 Lipase 117 Urine Color Yellow Urine Clarity Clear Urine pH 6.0 Ur Specific [place] Less/equal 1.005 Urine Protein 30 H Urine Glucose (UA) Negative Urine Ketones Negative Urine Occult Blood Trace Urine Nitrate Negative Urine Bilirubin Negative Urine Urobilinogen 0.2 Ur Leukocyte Esterase Moderate H Urine RBC 0-3 Urine WBC 21-50 H Urine WBC Clumps Few H Urine Bacteria Few H Micro UA Comment Culture indicated Urine Culture Comments Culture indicated Stl C.difficile Tox PCR St C. diff Tox Epid 027 11/05/17 11/05/17 11/05/17 05:47 05:47 13:10 CBC w Diff Slide review pending WBC 9.9 RBC 2.63 L Hgb 8.4 L Hct 23.1 L MCV 87.8 MCH 31.9 MCHC 36.4 H RDW 17.7 H Plt Count 306 MPV 8.4 Neut % (Auto) 79.1 H Lymph % (Auto) 10.6 [place] % (Auto) 7.3 Eos % (Auto) 0.8 Baso % (Auto) 2.2 H Neut # (Auto) 7.8 H Lymph # (Auto) 1.1 [place] # (Auto) 0.7 Eos # (Auto) 0.1 Baso # (Auto) 0.2 WBC Differential . Diff Scan Auto diff confirmed Differential Comment . Platelet Estimate Platelet Morphology Ovalocytes Hematology Comments Sodium 134 L Potassium 3.6 Chloride 104 Carbon Dioxide 19.1 L Anion Gap 11 BUN 43 H Creatinine 5.30 H Estimated GFR 8 L Random Glucose 89 Calcium 8.1 L Total Bilirubin 0.6 AST 19 ALT 15 Alkaline Phosphatase 97 Total Protein 6.3 L D Albumin 3.2 L Lipase Urine Color Urine Clarity Urine pH Ur Specific [place] Urine Protein Urine Glucose (UA) Urine Ketones Urine Occult Blood Urine Nitrate Urine Bilirubin Urine Urobilinogen Ur Leukocyte Esterase Urine RBC Urine WBC Urine WBC Clumps Urine Bacteria Micro UA Comment Urine Culture Comments Stl C.difficile Tox PCR Negative St C. diff Tox Epid 027 Negative 11/05/17 13:59 CBC w Diff WBC RBC Hgb Hct MCV MCH MCHC RDW Plt Count MPV Neut % (Auto) Lymph % (Auto) [place] % (Auto) Eos % (Auto) Baso % (Auto) Neut # (Auto) Lymph # (Auto) [place] # (Auto) Eos # (Auto) Baso # (Auto) WBC Differential Diff Scan Differential Comment Platelet Estimate Platelet Morphology Ovalocytes Hematology Comments Sodium 136 Potassium 3.1 L Chloride 107 Carbon Dioxide 19.1 L Anion Gap 10 BUN 41 H Creatinine 4.90 H Estimated GFR 8 L Random Glucose 97 Calcium 7.9 L Total Bilirubin AST ALT Alkaline Phosphatase Total Protein Albumin Lipase Urine Color Urine Clarity Urine pH Ur Specific [place] Urine Protein Urine Glucose (UA) Urine Ketones Urine Occult Blood Urine Nitrate Urine Bilirubin Urine Urobilinogen Ur Leukocyte Esterase Urine RBC Urine WBC Urine WBC Clumps Urine Bacteria Micro UA Comment Urine Culture Comments Stl C.difficile Tox PCR St C. diff Tox Epid 027 Result Diagrams: 11/05/17 05:47 11/05/17 13:59 (4) Diarrhea Qualifiers: Diarrhea type: unspecified type Qualified Code(s): R19.7 - Diarrhea, unspecified
[2017-11-05] MEDS: Loperamide 2 MG Capsule PO PRN (20:00)
[2017-11-06] MEDS: Sod Chloride 0.9% Inj 1,000 ML IV.CONT SCH ×2 (05:06→13:11)
[2017-11-06] MEDS: Levothyroxine 50 MCG Tablet PO SCH (06:00)
[2017-11-06 06:42] LABS: Baso % (Auto) 0.3 % (0.0-2.0); Eos # (Auto) 0.1 th/mm3 (0.0-0.4); Eos % (Auto) 1.3 % (0.0-4.0); Lymph # (Auto) 1.5 th/mm3 (1.0-4.8); Mean Platelet Volume 7.7 fL (7.0-11.0); Mono % (Auto) 11.5 % (0.0-8.0); Neut # (Auto) 6.2 th/mm3 (1.8-7.7); Neut % (Auto) 69.9 % (16.0-70.0); Platelet Count 285 th/mm3 (150-450); Red Cell Distribution Width 19.1 % (11.6-17.2); White Blood Count 8.8 th/mm3 (4.0-11.0)
[2017-11-06 06:58] LABS: Calcium 8.3 mg/dL (8.5-10.1); Potassium 3.4 meq/L (3.5-5.1)
[2017-11-06 07:22] LABS: Hematocrit 24.7 % (35.0-46.0); Hemoglobin 8.8 gm/dL (11.6-15.3); Mean Corpuscular Volume 89.9 fL (80.0-100.0); Red Blood Count 2.75 mil/mm3 (4.00-5.30)
[2017-11-06 07:23] LABS: Mean Corpuscular HGB Conc 35.8 % (32.0-36.0); Mean Corpuscular Hemoglobin 32.2 pg (27.0-34.0)
[2017-11-06 07:27] LABS: Corrected White Blood Count 8.3 th/mm3 (4.0-11.0); Lymphocytes 16 % (9-44); Metamyelocytes 4 % (0-1); Monocytes 36 % (0-8); Myelocytes 1 % (0-0); Tallied Nucleated RBC 6 (0-0)
[2017-11-06] MEDS: Metoprolol Tartrate 50 MG Tablet PO SCH ×2 (08:43→20:23)
[2017-11-06] MEDS: amLODIPine 5 MG Tablet PO SCH (08:43)
[2017-11-06] MEDS: AGRYLIN PO SCH ×2 (08:47→20:23)
[2017-11-06] MEDS: Loperamide 2 MG Capsule PO PRN ×2 (11:42→17:14)
--- NOTE | 2017-11-06 12:28 | P.PN ---
Subjective Interval history: diarhhea slowed down but still present, tolerating po, normally does not eat much, voiding , no abdominal pain Physical Exam Vital signs: Vital Signs 11/05/17 19:55 11/05/17 20:00 11/05/17 20:35 Temperature 97.9 F Pulse Rate 71 69 Respiratory Rate 16 Blood Pressure 135/65 Pulse Oximetry 93 L 96 11/06/17 00:00 11/06/17 04:00 11/06/17 08:00 Temperature 97.8 F 97.3 F L 97.9 F Pulse Rate 77 73 75 Respiratory Rate 16 16 20 Blood Pressure 116/57 L 112/74 142/63 H Pulse Oximetry 96 95 94 L 11/06/17 08:05 11/06/17 08:39 Temperature Pulse Rate 87 Respiratory Rate Blood Pressure Pulse Oximetry 96 Intake & Output 11/05/17 11/06/17 11/06/17 18:59 06:59 18:59 Intake Total 1000 / 1000 1999 / 1999 Output Total 500 / 500 400 / 400 Balance 500 / 500 1600 / 1600 Weight 50.9 kg Intake: IV 1000 / 1000 1999 / 1999 NS Inj 1,000 ML @ 125 mls/hr IV 1000 / 1000 1999 / 1999 .CONT .Q8H [facility] Rx#:[id number] Output: Urine 500 / 500 400 / 400 Other: Date of Last Bowel Movement 11/05/17 11/05/17 11/05/17 - Constitutional no acute distress - Routine HEENT Exam Head: Present: normocephalic Eye: Present: EOMI ENT: Present: mucous membranes moist - Routine Neck Exam Present: supple - Routine Respiratory Exam Present: CTA bilaterally - Routine Cardiovascular Exam Present: RRR - Routine Abdominal Exam Present: soft, normoactive bowel sounds - Routine Skin Exam Present: intact - Routine Neurological Exam Present: alert, oriented X3 - Detailed Neurological Exam: Coma Scale Eye Opening: Spontaneous - Routine Psychiatric Exam Present: normal affect Results - Labs CBC & Chem 7: 11/06/17 04:55 11/06/17 04:55 Laboratory Results - last 24 hr 11/05/17 11/05/17 11/06/17 13:10 13:59 04:55 CBC w Diff Slide review pending WBC 8.8 Corrected WBC 8.3 RBC 2.75 L Hgb 8.8 L Hct 24.7 L MCV 89.9 MCH 32.2 MCHC 35.8 RDW 19.1 H Plt Count 285 MPV 7.7 Neut % (Auto) 69.9 Lymph % (Auto) 17.0 [place] % (Auto) 11.5 H Eos % (Auto) 1.3 Baso % (Auto) 0.3 Neut # (Auto) 6.2 Lymph # (Auto) 1.5 [place] # (Auto) 1.0 H Eos # (Auto) 0.1 Baso # (Auto) 0.0 WBC Differential Manual diff final Seg Neuts % (Manual) 42 Band Neuts % (Manual) 1 Lymphocytes % (Manual) 16 Monocytes % (Manual) 36 H Metamyelocytes % (Man) 4 H Myelocytes % (Man) 1 H Abs Neuts (Manual) 4.0 Nucleated RBCs/100 WBC 6 H Differential Comment . Hematology Comments Sodium 136 Potassium 3.1 L Chloride 107 Carbon Dioxide 19.1 L Anion Gap 10 BUN 41 H Creatinine 4.90 H Estimated GFR 8 L Random Glucose 97 Calcium 7.9 L Stl C.difficile Tox PCR Negative St C. diff Tox Epid 027 Negative 11/06/17 04:55 CBC w Diff WBC Corrected WBC RBC Hgb Hct MCV MCH MCHC RDW Plt Count MPV Neut % (Auto) Lymph % (Auto) [place] % (Auto) Eos % (Auto) Baso % (Auto) Neut # (Auto) Lymph # (Auto) [place] # (Auto) Eos # (Auto) Baso # (Auto) WBC Differential Seg Neuts % (Manual) Band Neuts % (Manual) Lymphocytes % (Manual) Monocytes % (Manual) Metamyelocytes % (Man) Myelocytes % (Man) Abs Neuts (Manual) Nucleated RBCs/100 WBC Differential Comment Hematology Comments Sodium 144 Potassium 3.4 L Chloride 115 H D Carbon Dioxide 19.0 L Anion Gap 10 BUN 34 H Creatinine 3.80 H Estimated GFR 11 L Random Glucose 79 Calcium 8.3 L Stl C.difficile Tox PCR St C. diff Tox Epid 027 Microbiology 11/05/17 Unknown Stool Enteric Pathogens (PCR) - Final Salmonella species Assessment and Plan - Assessment (1) TRINITY (acute kidney injury) Code(s): N17.9 - Acute kidney failure, unspecified Status: Acute Plan: Renal function improved today despite diarrhea. Continue Iv fluids. Difficulty getting I/O's charted accurately. (2) Dehydration Code(s): E86.0 - Dehydration Status: Acute Plan: gently hydrate, diarrhea has resumed, will continue iv fluids (3) Acute hyponatremia Code(s): E87.1 - Hypo-osmolality and hyponatremia Status: Resolved Plan: sodium improved to normal, resolved (4) Diarrhea Code(s): R19.7 - Diarrhea, unspecified Status: Acute Plan: Diarrhea had apparently improved after kaopectate and antidiarrheal agent, restarted again, stool was positive for salmonella. She denies abdominal pain will continue supportive measures. (4) Diarrhea Qualifiers: Diarrhea type: infectious Qualified Code(s): A09 - Infectious gastroenteritis and colitis, unspecified
[2017-11-06] MEDS ORDERED: Potassium Chloride 25 MEQ Effervescent Tablet PO ONE (13:00)
[2017-11-06] MEDS: Sodium Chloride 0.45 % Inj 1,000 ML IV.CONT SCH ×2 (13:12→23:31)
--- NOTE | 2017-11-06 21:26 | P.PNNP ---
Subjective Interval history: Patient seen in the afternoon, no SOB, still has diarrhea. Physical Exam Vital signs: Vital Signs 11/06/17 00:00 11/06/17 04:00 11/06/17 08:00 Temperature 97.8 F 97.3 F L 97.9 F Pulse Rate 77 73 75 Respiratory Rate 16 16 20 Blood Pressure 116/57 L 112/74 142/63 H Pulse Oximetry 96 95 94 L 11/06/17 08:05 11/06/17 08:39 11/06/17 12:00 Temperature 97.2 F L Pulse Rate 87 77 Respiratory Rate 20 Blood Pressure 111/58 L Pulse Oximetry 96 94 L 11/06/17 16:00 11/06/17 19:30 11/06/17 20:26 Temperature 97 F L 97.8 F Pulse Rate 80 77 Respiratory Rate 20 16 Blood Pressure 139/66 150/70 H Pulse Oximetry 95 94 L 94 L Intake & Output 11/06/17 11/06/17 11/07/17 06:59 18:59 06:59 Intake Total 1999 / 1999 1870 / 1870 Output Total 400 / 400 900 / 900 Balance 1600 / 1600 970 / 970 Weight 50.9 kg Intake: IV 1999 / 1999 1000 / 1000 NS Inj 1,000 ML @ 125 mls/hr IV 1999 / 1999 1000 / 1000 .CONT .Q8H [facility] Rx#:[id number] Oral 870 / 870 Output: Urine 400 / 400 900 / 900 Other: # Voids 5 Date of Last Bowel Movement 11/05/17 11/05/17 # Bowel Movements 5 Narrative: Patient is alert, mild abd. pain and still has diarrhea. HEENT: NAHUM, non icteric sclera, conjunctiva pale. Neck: Supple, JVD not elevated. Lungs: Bilateral good air entry, with few basal rales, occ. rhonchi. Abd: No tenderness, BS positive, distended. Ext: No leg edema. Assessment and Plan - Assessment (1) TRINITY (acute kidney injury) Code(s): N17.9 - Acute kidney failure, unspecified Status: Acute Onset Date : ~11/04/17 (2) Dehydration Code(s): E86.0 - Dehydration Status: Acute Onset Date: ~11/04/17 (3) Acute hyponatremia Code(s): E87.1 - Hypo-osmolality and hyponatremia Status: Resolved Onset Date: ~11/04/17 (4) Diarrhea Code(s): R19.7 - Diarrhea, unspecified Status: Acute Onset Date: ~11/01/17 Qualifiers: Diarrhea type: infectious Qualified Code(s): A09 - Infectious gastroenteritis and colitis, unspecified - Plan Patient has Chronic kidney disease and develop acute renal failure, most likely due to GI induced volume loss, she has diarrhea and acute renal failure. Potassium is low replace this Continue tong IVF. Creatinine improving. Avoid nephrotoxins C. difficile is negative Etiology of diarrhea is unclear Continue to monitor BMP Stool culture showing Salmonella.
[2017-11-07] MEDS: Levothyroxine 50 MCG Tablet PO SCH (06:12)
[2017-11-07 06:18] LABS: Potassium 3.4 meq/L (3.5-5.1)
[2017-11-07] MEDS: AGRYLIN PO SCH ×2 (08:00→20:36)
[2017-11-07] MEDS: Sodium Chloride 0.45 % Inj 1,000 ML IV.CONT SCH ×2 (08:26→23:10)
[2017-11-07] MEDS: amLODIPine 5 MG Tablet PO SCH (08:29)
[2017-11-07] MEDS: Metoprolol Tartrate 50 MG Tablet PO SCH ×2 (08:29→20:35)
--- NOTE | 2017-11-07 11:20 | P.PN ---
Subjective Interval history: no new complaints, received immodium yesterday afternoon and diarrhea stopped, not eating, doesnt like the food. ambulating to rest room and around the room, no abdominal pain Physical Exam Vital signs: Vital Signs 11/06/17 12:00 11/06/17 16:00 11/06/17 19:30 Temperature 97.2 F L 97 F L Pulse Rate 77 80 Respiratory Rate 20 20 Blood Pressure 111/58 L 139/66 Pulse Oximetry 94 L 95 94 L 11/06/17 20:00 11/06/17 20:26 11/07/17 00:00 Temperature 97.8 F 97.1 F L Pulse Rate 77 77 72 Respiratory Rate 16 16 Blood Pressure 150/70 H 157/72 H Pulse Oximetry 94 L 94 L 11/07/17 04:00 11/07/17 08:00 Temperature 97.0 F L 97.0 F L Pulse Rate 70 80 Respiratory Rate 16 16 Blood Pressure 130/69 157/84 H Pulse Oximetry 96 96 Intake & Output 11/06/17 11/07/17 11/07/17 18:59 06:59 18:59 Intake Total 1870 / 1870 1000 / 1000 1000 / 1000 Output Total 900 / 900 900 / 900 1000 / 1000 Balance 970 / 970 100 / 100 0 / 0 Intake: IV 1000 / 1000 1000 / 1000 1000 / 1000 NS Inj 1,000 ML @ 125 mls/hr IV 1000 / 1000 .CONT .Q8H [facility] Rx#:[id number] 1/2 Normal Saline Inj 1,000 ML 1000 / 1000 1000 / 1000 @ 100 mls/hr IV.CONT .Q10H [facility] Rx#:[id number] Oral 870 / 870 Output: Urine 900 / 900 900 / 900 1000 / 1000 Other: # Voids 5 2 Date of Last Bowel Movement 11/05/17 11/06/17 # Bowel Movements 5 2 - Constitutional no acute distress - Routine Respiratory Exam Present: CTA bilaterally - Routine Cardiovascular Exam Present: RRR - Routine Abdominal Exam Present: soft, normoactive bowel sounds - Routine Skin Exam Present: intact - Routine Neurological Exam Present: alert, oriented X3 Results - Labs CBC & Chem 7: 11/06/17 04:55 11/07/17 05:05 Laboratory Results - last 24 hr 11/07/17 05:05 Sodium 141 Potassium 3.4 L Chloride 113 H Carbon Dioxide 19.0 L Anion Gap 9 BUN 20 H Creatinine 2.20 H Estimated GFR 21 L Random Glucose 83 Calcium 8.0 L Microbiology 11/04/17 23:15 Clean Catch Urine Urine Culture - Final 10-50,000 cfu/mL mixed gram positive bianka (probable contaminants) 11/05/17 Unknown Stool Enteric Pathogens (PCR) - Final Salmonella species Assessment and Plan - Assessment (1) TRINITY (acute kidney injury) Code(s): N17.9 - Acute kidney failure, unspecified Status: Acute Plan: steady improvement in renal function with hydration and electrolyte replacement , voiding well (2) Dehydration Code(s): E86.0 - Dehydration Status: Acute Plan: improved, ivfluids increased yesterday with report of increased diarrhea in the am (3) Acute hyponatremia Code(s): E87.1 - Hypo-osmolality and hyponatremia Status: Resolved Plan: sodium improved to normal, resolved (4) Diarrhea Code(s): R19.7 - Diarrhea, unspecified Status: Acute Plan: She had increased diarrhea yesterday clinically she seems to be doing well but the diarrhea persists intermittently, given her age and other health conditions we discussed putting her on oral antibiotcs and she is agreeable - Plan her renal function continues to improve, if her diarrhea slows down and she is able to keep herself hydrated she should be able to go home in the next day or two. Discussed Condition With: patient and brother (4) Diarrhea Qualifiers: Diarrhea type: infectious Qualified Code(s): A09 - Infectious gastroenteritis and colitis, unspecified
[2017-11-07] MEDS ORDERED: Potassium Chloride 25 MEQ Effervescent Tablet PO SCH (12:00)
[2017-11-07] MEDS: levoFLOXacin 250 MG Tablet PO SCH (13:49)
--- NOTE | 2017-11-07 15:26 | P.PNNP ---
Subjective Interval history: Patient is alert, no loose BM today, no nausea, started taking fluids orally. Physical Exam Vital signs: Vital Signs 11/06/17 16:00 11/06/17 19:30 11/06/17 20:00 Temperature 97 F L Pulse Rate 80 77 Respiratory Rate 20 Blood Pressure 139/66 Pulse Oximetry 95 94 L 11/06/17 20:26 11/07/17 00:00 11/07/17 04:00 Temperature 97.8 F 97.1 F L 97.0 F L Pulse Rate 77 72 70 Respiratory Rate 16 16 16 Blood Pressure 150/70 H 157/72 H 130/69 Pulse Oximetry 94 L 94 L 96 11/07/17 08:00 11/07/17 12:00 Temperature 97.0 F L 97.0 F L Pulse Rate 80 69 Respiratory Rate 16 16 Blood Pressure 157/84 H 140/63 Pulse Oximetry 96 96 Intake & Output 11/06/17 11/07/17 11/07/17 18:59 06:59 18:59 Intake Total 1870 / 1870 1000 / 1000 1000 / 1000 Output Total 900 / 900 900 / 900 1000 / 1000 Balance 970 / 970 100 / 100 0 / 0 Intake: IV 1000 / 1000 1000 / 1000 1000 / 1000 NS Inj 1,000 ML @ 125 mls/hr IV 1000 / 1000 .CONT .Q8H [facility] Rx#:[id number] 1/2 Normal Saline Inj 1,000 ML 1000 / 1000 1000 / 1000 @ 100 mls/hr IV.CONT .Q10H [facility] Rx#:[id number] Oral 870 / 870 Output: Urine 900 / 900 900 / 900 1000 / 1000 Other: # Voids 5 2 Date of Last Bowel Movement 11/05/17 11/06/17 11/06/17 # Bowel Movements 5 2 Narrative: Patient is alert, mild abd. pain and still has diarrhea. HEENT: NAHUM, non icteric sclera, conjunctiva pale. Neck: Supple, JVD not elevated. Lungs: Bilateral good air entry, with few basal rales, occ. rhonchi. Abd: No tenderness, BS positive, distended. Ext: No leg edema. Assessment and Plan - Assessment (1) TRINITY (acute kidney injury) Code(s): N17.9 - Acute kidney failure, unspecified Status: Acute Onset Date : ~11/04/17 (2) Dehydration Code(s): E86.0 - Dehydration Status: Acute Onset Date: ~11/04/17 (3) Acute hyponatremia Code(s): E87.1 - Hypo-osmolality and hyponatremia Status: Resolved Onset Date: ~11/04/17 (4) Diarrhea Code(s): R19.7 - Diarrhea, unspecified Status: Acute Onset Date: ~11/01/17 Qualifiers: Diarrhea type: infectious Qualified Code(s): A09 - Infectious gastroenteritis and colitis, unspecified - Plan Patient has Chronic kidney disease and develop acute renal failure, most likely due to GI induced volume loss, she has diarrhea and acute renal failure. Continue the IVF. BUN and Creatinine continue to be improving. Creatinine now 2.2. Avoid nephrotoxins C. difficile is negative Stool culture showing Salmonella. Encourage oral intake.
[2017-11-08 06:15] LABS: Baso # (Auto) 0.3 th/mm3 (0.0-0.2); Baso % (Auto) 1.8 % (0.0-2.0); Eos # (Auto) 0.3 th/mm3 (0.0-0.4); Eos % (Auto) 1.7 % (0.0-4.0); Hematocrit 24.5 % (35.0-46.0); Hemoglobin 8.8 gm/dL (11.6-15.3); Lymph # (Auto) 2.8 th/mm3 (1.0-4.8); Lymph % (Auto) 17.5 % (9.0-44.0); Mean Corpuscular HGB Conc 35.9 % (32.0-36.0); Mean Corpuscular Volume 108.7 fL (80.0-100.0); Mono # (Auto) 1.4 th/mm3 (0.0-0.9); Mono % (Auto) 8.8 % (0.0-8.0); Neut # (Auto) 11.1 th/mm3 (1.8-7.7); Neut % (Auto) 70.2 % (16.0-70.0); Platelet Count 223 th/mm3 (150-450); Red Blood Count 2.25 mil/mm3 (4.00-5.30); Red Cell Distribution Width 19.5 % (11.6-17.2); White Blood Count 15.9 th/mm3 (4.0-11.0)
[2017-11-08] MEDS: Levothyroxine 50 MCG Tablet PO SCH (06:15)
[2017-11-08 06:33] LABS: Lymphocytes 10 % (9-44); Metamyelocytes 3 % (0-1); Monocytes 1 % (0-8); Myelocytes 2 % (0-0); Platelet Estimate Normal (Normal); Platelet Morphology Normal (Normal); Tallied Nucleated RBC 1 (0-0)
[2017-11-08 06:35] LABS: Calcium 7.9 mg/dL (8.5-10.1); Carbon Dioxide 21.3 meq/L (21.0-32.0); Potassium 4.2 meq/L (3.5-5.1)
[2017-11-08] MEDS: Metoprolol Tartrate 50 MG Tablet PO SCH ×2 (09:05→20:21)
[2017-11-08] MEDS: amLODIPine 5 MG Tablet PO SCH (09:06)
[2017-11-08] MEDS: levoFLOXacin 250 MG Tablet PO SCH (09:06)
[2017-11-08] MEDS: AGRYLIN PO SCH ×2 (09:07→20:31)
[2017-11-08] MEDS: Sodium Chloride 0.45 % Inj 1,000 ML IV.CONT SCH ×2 (09:12→13:55)
--- NOTE | 2017-11-08 12:31 | P.PN ---
Subjective Interval history: a little light headed today but otherwise feeling well. Eating, Has had only 1 bowel movement since last evening and she says it is more formed.Ambulating in room. Physical Exam Vital signs: Vital Signs 11/07/17 16:00 11/07/17 20:00 11/08/17 00:00 Temperature 97.0 F L 98.1 F 98.4 F Pulse Rate 76 79 73 Respiratory Rate 16 16 16 Blood Pressure 145/63 H 131/62 112/59 L Pulse Oximetry 98 95 97 11/08/17 04:00 11/08/17 08:00 Temperature 98.0 F 96.8 F L Pulse Rate 66 78 Respiratory Rate 16 20 Blood Pressure 136/61 141/63 H Pulse Oximetry 96 96 Intake & Output 11/07/17 11/08/17 11/08/17 18:59 06:59 18:59 Intake Total 1000 / 1000 1200 / 1200 1000 / 1000 Output Total 1000 / 1000 900 / 900 Balance 0 / 0 300 / 300 1000 / 1000 Weight 50.9 kg Intake: IV 1000 / 1000 1000 / 1000 1000 / 1000 1/2 Normal Saline Inj 1,000 ML 1000 / 1000 1000 / 1000 1000 / 1000 @ 100 mls/hr IV.CONT .Q10H [facility] Rx#:[id number] Other 200 / 200 Output: Urine 1000 / 1000 900 / 900 Other: Date of Last Bowel Movement 11/06/17 - Constitutional no acute distress - Routine HEENT Exam Head: Present: normocephalic Eye: Present: EOMI - Routine Respiratory Exam Present: CTA bilaterally - Routine Cardiovascular Exam Present: RRR - Routine Abdominal Exam Present: soft, normoactive bowel sounds - Routine Extremities Exam Comments: no edema - Routine Skin Exam Present: intact Results - Labs CBC & Chem 7: 11/08/17 05:17 11/08/17 05:17 Laboratory Results - last 24 hr 11/08/17 11/08/17 05:17 05:17 CBC w Diff Slide review pending WBC 15.9 H RBC 2.25 L Hgb 8.8 L Hct 24.5 L MCV 108.7 H D MCH 39.0 H MCHC 35.9 RDW 19.5 H Plt Count 223 MPV 8.0 Neut % (Auto) 70.2 H Lymph % (Auto) 17.5 [place] % (Auto) 8.8 H Eos % (Auto) 1.7 Baso % (Auto) 1.8 Neut # (Auto) 11.1 H Lymph # (Auto) 2.8 [place] # (Auto) 1.4 H Eos # (Auto) 0.3 Baso # (Auto) 0.3 H WBC Differential Manual diff final Seg Neuts % (Manual) 71 H Band Neuts % (Manual) 13 H Lymphocytes % (Manual) 10 Monocytes % (Manual) 1 Metamyelocytes % (Man) 3 H Myelocytes % (Man) 2 H Abs Neuts (Manual) 14.2 H Nucleated RBCs/100 WBC 1 H Differential Comment . Platelet Estimate Normal Platelet Morphology Normal Sodium 142 Potassium 4.2 D Chloride 113 H Carbon Dioxide 21.3 Anion Gap 8 BUN 15 Creatinine 1.70 H Estimated GFR 29 L Random Glucose 82 Calcium 7.9 L Assessment and Plan - Assessment (1) TRINITY (acute kidney injury) Code(s): N17.9 - Acute kidney failure, unspecified Status: Acute Plan: steady improvement in renal function with hydration and electrolyte replacement , voiding well she is pushing fluids and per report no longer having diarrhea will decrease iv fluids (2) Dehydration Code(s): E86.0 - Dehydration Status: Resolved Plan: improved, with iv fluids (3) Acute hyponatremia Code(s): E87.1 - Hypo-osmolality and hyponatremia Status: Resolved Plan: sodium improved to normal, resolved (4) Diarrhea Code(s): R19.7 - Diarrhea, unspecified Status: Acute Plan: per report her diarrhea is almost resolved, will see how she does today.electrolytes ok. started on levaquin yesterday due to comorbidities and report of worsening diarrhea. (I/O difficult to track on new system, finally just stuck paper on BR door) (5) Leukocytosis, unspecified Code(s): D72.829 - Elevated white blood cell count, unspecified Status: Acute Plan: Aside from diarrhea that has been improving no other obvious infectious source monitor - Plan her renal function continues to improve, if her diarrhea slows down and she is able to keep herself hydrated she should be able to go home in the next day or two. (4) Diarrhea Qualifiers: Diarrhea type: infectious Qualified Code(s): A09 - Infectious gastroenteritis and colitis, unspecified
--- NOTE | 2017-11-08 15:54 | P.PNNP ---
Subjective Interval history: Patient is alert, started eating , no loose BM today. Physical Exam Vital signs: Vital Signs 11/07/17 16:00 11/07/17 20:00 11/08/17 00:00 Temperature 97.0 F L 98.1 F 98.4 F Pulse Rate 76 79 73 Respiratory Rate 16 16 16 Blood Pressure 145/63 H 131/62 112/59 L Pulse Oximetry 98 95 97 11/08/17 04:00 11/08/17 08:00 11/08/17 12:00 Temperature 98.0 F 96.8 F L 96.5 F L Pulse Rate 66 74 76 Respiratory Rate 16 20 20 Blood Pressure 136/61 141/63 H 138/68 Pulse Oximetry 96 96 96 Intake & Output 11/07/17 11/08/17 11/08/17 18:59 06:59 18:59 Intake Total 1000 / 1000 1200 / 1200 1467 / 1467 Output Total 1000 / 1000 900 / 900 Balance 0 / 0 300 / 300 1467 / 1467 Weight 50.9 kg Intake: IV 1000 / 1000 1000 / 1000 1467 / 1467 1/2 Normal Saline Inj 1,000 ML 1000 / 1000 1000 / 1000 1467 / 1467 @ 100 mls/hr IV.CONT .Q10H [facility] Rx#:[id number] Other 200 / 200 Output: Urine 1000 / 1000 900 / 900 Other: Date of Last Bowel Movement 11/06/17 11/07/17 Narrative: Patient is alert, mild abd. pain and still has diarrhea. HEENT: NAHUM, non icteric sclera, conjunctiva pale. Neck: Supple, JVD not elevated. Lungs: Bilateral good air entry, with few basal rales, occ. rhonchi. Abd: No tenderness, BS positive, distended. Ext: No leg edema. Assessment and Plan - Assessment (1) TRINITY (acute kidney injury) Code(s): N17.9 - Acute kidney failure, unspecified Status: Acute Onset Date : ~11/04/17 (2) Dehydration Code(s): E86.0 - Dehydration Status: Resolved Onset Date: ~11/04/17 (3) Acute hyponatremia Code(s): E87.1 - Hypo-osmolality and hyponatremia Status: Resolved Onset Date: ~11/04/17 (4) Diarrhea Code(s): R19.7 - Diarrhea, unspecified Status: Acute Onset Date: ~11/01/17 Qualifiers: Diarrhea type: infectious Qualified Code(s): A09 - Infectious gastroenteritis and colitis, unspecified - Plan Patient has Chronic kidney disease and develop acute renal failure, most likely due to GI induced volume loss, she has diarrhea and acute renal failure. Continue the IVF. BUN and Creatinine continue to be improving. Creatinine decrease now to 1.7. Avoid nephrotoxins C. difficile is negative Stool culture showing Salmonella. Encourage oral intake. To D/C IVF and encourage oral intake. If better, possible D/C in AM.
[2017-11-08 16:39] LABS: Bilirubin,Urine Negative (Negative); Clarity,Urine Clear (Clear); Glucose,Urine (UA) Negative (Negative); Leukocyte Esterase,Urine Trace (Negative); Nitrite,Urine Negative (Negative); Specific Gravity,Urine Less/Equal 1.005 (1.002-1.035); Urobilinogen,Urine 0.2 mg/dL (Less than 2)
[2017-11-08 16:40] LABS: Color,Urine Straw (Yellw/Straw)
[2017-11-08 17:13] LABS: RBC,Urine 0-3 /hpf (0-3); Squamous Epithelial Cell,Urine 0-5 /hpf (0-5); WBC,Urine 0-5 /hpf (0-5)
[2017-11-09] MEDS: Sodium Chloride 0.45 % Inj 1,000 ML IV.CONT SCH (04:08)
[2017-11-09] MEDS: Levothyroxine 50 MCG Tablet PO SCH (05:59)
[2017-11-09 07:32] LABS: Chloride 110 meq/L (98-107); Potassium 3.8 meq/L (3.5-5.1); Sodium 140 meq/L (136-145)
[2017-11-09 07:41] LABS: Calcium 7.7 mg/dL (8.5-10.1)
[2017-11-09 07:42] LABS: Albumin 3.1 g/dL (3.4-5.0); Anion Gap 10 meq/L (5-15); Blood Urea Nitrogen 14 mg/dL (7-18); Carbon Dioxide 20.3 meq/L (21.0-32.0); Glucose,Random 78 mg/dL (74-106)
[2017-11-09 07:45] LABS: Alanine Aminotransferase 14 U/L (10-53); Aspartate Aminotransferase 25 U/L (15-37); Glomerular Filtration Rate 33 mL/min (>89)
[2017-11-09 07:47] LABS: Total Protein 6.2 g/dL (6.4-8.2)
[2017-11-09 07:48] LABS: Alkaline Phosphatase 89 U/L (45-117)
[2017-11-09 07:56] LABS: Baso # (Auto) 0.3 th/mm3 (0.0-0.2); Baso % (Auto) 2.3 % (0.0-2.0); Eos # (Auto) 0.2 th/mm3 (0.0-0.4); Eos % (Auto) 1.1 % (0.0-4.0); Hematocrit 24.9 % (35.0-46.0); Hemoglobin 8.8 gm/dL (11.6-15.3); Lymph # (Auto) 2.2 th/mm3 (1.0-4.8); Lymph % (Auto) 14.6 % (9.0-44.0); Mean Corpuscular HGB Conc 35.2 % (32.0-36.0); Mean Corpuscular Hemoglobin 31.5 pg (27.0-34.0); Mean Corpuscular Volume 89.5 fL (80.0-100.0); Mono # (Auto) 0.6 th/mm3 (0.0-0.9); Mono % (Auto) 3.8 % (0.0-8.0); Neut # (Auto) 11.8 th/mm3 (1.8-7.7); Neut % (Auto) 78.2 % (16.0-70.0); Red Blood Count 2.78 mil/mm3 (4.00-5.30); Red Cell Distribution Width 18.7 % (11.6-17.2); White Blood Count 15.1 th/mm3 (4.0-11.0)
[2017-11-09 07:58] LABS: Mean Platelet Volume 7.8 fL (7.0-11.0); Platelet Count 228 th/mm3 (150-450)
[2017-11-09 08:38] LABS: Eosinophils 1 % (0-4); Lymphocytes 9 % (9-44); Metamyelocytes 3 % (0-1); Monocytes 5 % (0-8); Myelocytes 1 % (0-0); Ovalocytes 1+; Platelet Estimate Normal (Normal); Platelet Morphology Normal (Normal); Promyelocyte 2 % (0-0); Tallied Nucleated RBC 1 (0-0); Tear Drop Cells 1+
[2017-11-09] MEDS: AGRYLIN PO SCH (09:20)
[2017-11-09] MEDS: Metoprolol Tartrate 50 MG Tablet PO SCH (09:21)
[2017-11-09] MEDS: amLODIPine 5 MG Tablet PO SCH (09:21)
--- NOTE | 2017-11-09 10:28 | P.PN ---
Subjective Interval history: Feeling much better, ready to go home, no abdominal pain, diarrhea slowed down significantly between liquid and soft, no dysuria, no cough, no chills, feels close to baseline, ready to go home Physical Exam Vital signs: Vital Signs 11/08/17 12:00 11/08/17 15:59 11/08/17 20:00 Temperature 96.5 F L 97.4 F L 97.3 F L Pulse Rate 76 75 72 Respiratory Rate 20 20 20 Blood Pressure 138/68 141/66 H 156/67 H Pulse Oximetry 96 95 98 11/09/17 00:00 11/09/17 04:00 11/09/17 08:04 Temperature 98.5 F 97.8 F 98.1 F Pulse Rate 74 69 73 Respiratory Rate 16 16 19 Blood Pressure 107/59 L 131/59 L 150/64 H Pulse Oximetry 97 97 96 Intake & Output 11/08/17 11/09/17 11/09/17 18:59 06:59 18:59 Intake Total 2509 / 2509 1000 / 1000 240 / 240 Output Total 1000 / 1000 Balance 1509 / 1509 1000 / 1000 240 / 240 Intake: IV 1467 / 1467 1000 / 1000 1/2 Normal Saline Inj 1,000 ML 1467 / 1467 1000 / 1000 @ 70 mls/hr IV.CONT .[id number] [facility] Rx#:[id number] Oral 1042 / 1042 240 / 240 Output: Urine 1000 / 1000 Other: # Voids 1 Date of Last Bowel Movement 11/07/17 11/08/17 # Bowel Movements 1 1 - Constitutional no acute distress - Routine HEENT Exam Head: Present: normocephalic Eye: Present: EOMI ENT: Present: mucous membranes moist - Routine Respiratory Exam Present: CTA bilaterally - Routine Cardiovascular Exam Present: RRR - Routine Abdominal Exam Present: soft, normoactive bowel sounds - Routine Skin Exam Present: intact - Routine Neurological Exam Present: alert, oriented X3 - Routine Psychiatric Exam Present: normal affect, normal thought process Results - Labs CBC & Chem 7: 11/09/17 05:45 11/09/17 05:45 Laboratory Results - last 24 hr 11/08/17 11/09/17 11/09/17 15:25 05:45 05:45 CBC w Diff Slide review pending WBC 15.1 H RBC 2.78 L Hgb 8.8 L Hct 24.9 L MCV 89.5 D MCH 31.5 MCHC 35.2 RDW 18.7 H Plt Count 228 MPV 7.8 Neut % (Auto) 78.2 H Lymph % (Auto) 14.6 [place] % (Auto) 3.8 Eos % (Auto) 1.1 Baso % (Auto) 2.3 H Neut # (Auto) 11.8 H Lymph # (Auto) 2.2 [place] # (Auto) 0.6 Eos # (Auto) 0.2 Baso # (Auto) 0.3 H WBC Differential Manual diff final Seg Neuts % (Manual) 71 H Band Neuts % (Manual) 8 H Lymphocytes % (Manual) 9 Monocytes % (Manual) 5 Eosinophils % (Manual) 1 Metamyelocytes % (Man) 3 H Myelocytes % (Man) 1 H Promyelocytes % (Man) 2 H Abs Neuts (Manual) 12.8 H Nucleated RBCs/100 WBC 1 H Differential Comment . Platelet Estimate Normal Platelet Morphology Normal Tear Drop Cells 1+ H Ovalocytes 1+ H Hematology Comments Sodium 140 Potassium 3.8 Chloride 110 H Carbon Dioxide 20.3 L Anion Gap 10 BUN 14 Creatinine 1.50 H Estimated GFR 33 L Random Glucose 78 Calcium 7.7 L Total Bilirubin 0.6 AST 25 ALT 14 Alkaline Phosphatase 89 Total Protein 6.2 L Albumin 3.1 L Urine Color Straw Urine Clarity Clear Urine pH 6.0 Ur Specific [place] Less/equal 1.005 Urine Protein Negative Urine Glucose (UA) Negative Urine Ketones Negative Urine Occult Blood Trace Urine Nitrate Negative Urine Bilirubin Negative Urine Urobilinogen 0.2 Ur Leukocyte Esterase Trace H Urine RBC 0-3 Urine WBC 0-5 Urine WBC Clumps Few H Ur Squamous Epith Cells 0-5 Micro UA Comment Culture indicated Urine Culture Comments Culture indicated Assessment and Plan - Assessment (1) TRINITY (acute kidney injury) Code(s): N17.9 - Acute kidney failure, unspecified Status: Resolved Plan: renal function almost back to baseline with fluids and decrease in diarrhea (2) Dehydration Code(s): E86.0 - Dehydration Status: Resolved Plan: improved, with iv fluids (3) Acute hyponatremia Code(s): E87.1 - Hypo-osmolality and hyponatremia Status: Resolved Plan: sodium improved to normal, resolved (4) Diarrhea Code(s): R19.7 - Diarrhea, unspecified Status: Acute Plan: Diarrhea significantly improved , Small amout now. Started on levaquin for salmonella given her comorbidities (5) Leukocytosis, unspecified Code(s): D72.829 - Elevated white blood cell count, unspecified Status: Acute Plan: Aside from diarrhea that has been improving no other obvious infectious source monitor, clinically she is doing well, may be due to underlying hematological disorder, will recheck as outpatient - Plan Discharge home today with follow up Discussed Condition With: patient and brother (4) Diarrhea Qualifiers: Diarrhea type: infectious Qualified Code(s): A09 - Infectious gastroenteritis and colitis, unspecified
--- NOTE | 2017-11-28 19:23 | P.DS ---
Date of admission: 11/04/17 19:47 Primary care physician: Laurie Treviño MD Attending physician on discharge: Laurie Treviño Anticipated date of discharge: 11/09/17 Brief History from admission: Patient presented to the ER after 4 day history of diarrhea and no urination for the past 24 hours. She states she has been feeling poorly starting mon when she went to see Dr May for her myelodysplastic syndrome and had her injection of procrit. That evening she felt chills then developed diarrhea for the next 4 days going 6-9 times a day. She kept taking in fluids but was unable to eat much. She also had LLQ pain. She denies blood in her stools. She presented to the ER this evening and was found to have a creatinine of 5. She normally sees Dr De La Cruz for her CKD3. Her last BUn in august was 18 and her creatinine was 1.18. She normally takes sodium bicarbonate and she has been taking all her medications during her illness. She denies use of any new medications.She states she had epsiodes of nausea and vomiting that had subsided by monday. DS: Diagnosis - Discharge Diagnosis (1) TRINITY (acute kidney injury) Status: Acute (2) Dehydration Status: Acute (3) Acute hyponatremia Status: Acute DS: Medications - Discharge Medications Prescriptions: levofloxacin 250 mg PO DAILY #7 tab DS: Summary Hospital Course: Patient admitted and electrolyte and volume status corrected with Iv fluids. 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 Her renal function gradually improved and was near baseline at discharge and her sodium was normalized. She did have diarrhea and this came back positive for salmonella. Given her comorbidities she was palced and discharged on levaquin which she tolerated well. Her diarrhea had improved significantly by time of discharge and she was tolerating a bland diet. - Time Spent with Patient Total time spent providing and/or coordinating discharge services: 45 min Greater than 30 minutes - Quality: VTE Deep Vein Thrombosis/Pulmonary Embolism Present on Admission: No Exam - Constitutional no acute distress - Routine HEENT Exam Head: Present: normocephalic Eye: Present: EOMI ENT: Present: mucous membranes moist - Routine Respiratory Exam Present: CTA bilaterally - Routine Cardiovascular Exam Present: RRR - Routine Abdominal Exam Present: soft, normoactive bowel sounds - Routine Extremities Exam Present: full ROM - Routine Skin Exam Present: intact - Routine Neurological Exam Present: alert, oriented X3 Results Procedures completed during hospitalization: none - Impressions ITS Impressions Abdomen/Pelvis CT 11/05/17 00:00 CONCLUSION: 1. Nonspecific ascending and transverse colon wall thickening suggesting colitis. 2. 1.4 cm rounded hypodensity in the left kidney likely representing a cyst. Discharge Plan - Discharge Disposition Patient Disposition: Discharge Home - Discharge Condition Condition: Stable - Discharge Order Discharge Orders: Discharge Order (Routine); Ordered 11/09/17 Ordered By: Laurie Treviño - Discharge Details Anticipated Discharge Date: 11/04/17 - Physicians Team Primary Care Provider: Laurie Treviño Attending Provider: Laurie Treviño Other Providers: Dewey Hastings MD
== END 2017-11-09 11:34 | disposition home or self-care (01) ==
LOC: PHED 17:11 → PHEDA 19:47 → PH3 21:01
PROVIDERS: ADMIT Legal Medicine; ATTEND Legal Medicine
DX: E86.0 Dehydration; D47.3 Essential (hemorrhagic) thrombocythemia; N18.3 Chronic kidney disease, stage 3 (moderate); I12.9 Hypertensive chronic kidney disease with stage 1 through stage 4 chronic kidney disease, or unspecified chronic kidney disease; E03.9 Hypothyroidism, unspecified; Z90.49 Acquired absence of other specified parts of digestive tract; A02.0 Salmonella enteritis; N17.9 Acute kidney failure, unspecified; E87.1 Hypo-osmolality and hyponatremia; D46.9 Myelodysplastic syndrome, unspecified; D63.1 Anemia in chronic kidney disease; E78.5 Hyperlipidemia, unspecified